=== PATIENT | female | born 1995 | race Caucasian/White ===

== ENCOUNTER 2021-09-17 09:56 | Outpatient (REF) | payer MEDICAID, SELFPAY ==
--- NOTE | ~2021-09-17 | XR_ITS ---
EXAMINATION: XR FINGER, RIGHT CLINICAL INFORMATION: Pain in right finger 2nd metacarpal. COMPARISON: None TECHNIQUE: 3 views of the right 2nd finger. FINDINGS: The bones and soft tissues are normal. No fracture. Alignment is anatomic. Joint spaces are maintained. XR/XR finger RT min 2V IMPRESSION: Unremarkable right 2nd finger radiographs.
== END 2021-09-17 09:57 | disposition home or self-care (01) ==
LOC: HO.XRAY 09:56
PROVIDERS: PCP Family Medicine; Visit Provider Family Medicine
DX: M79.644 Pain in right finger(s) (principal)
CPT/HCPCS: 73140

== ENCOUNTER → 2021-10-01 12:37 | Outpatient (BNVA) | payer MEDICAID, SELFPAY | PROVIDERS: PCP Family Medicine; Visit Provider Orthopaedic Surgery | DX: M67.441 Ganglion, right hand (principal) | CPT/HCPCS: 20612; 99202 ==

== ENCOUNTER 2022-01-11 13:28 | Outpatient (REF) | payer MEDICAID, SELFPAY ==
--- NOTE | ~2022-01-11 | US_ITS ---
EXAMINATION: US PELVIS CLINICAL INFORMATION: Dysmenorrhea COMPARISON: None TECHNIQUE: Transabdominal pelvic ultrasound. Patient declined transvaginal exam. FINDINGS: The uterus is anteverted and measures 6.2 x 2.8 x 3.9 cm in dimension. No focal uterine lesion. Endometrial thickness is normal measuring 0.6 cm. The ovaries are normal. The right ovary measures 3.1 x 1.8 x 3.3 cm. The left ovary measures 3.1 x 1.7 x 1.5 cm. There is no fluid in the pelvis. US/US pelvic complete IMPRESSION: Normal pelvic ultrasound.
== END 2022-01-11 13:29 | disposition home or self-care (01) ==
LOC: HO.US 13:28
PROVIDERS: Visit Provider Family Medicine
DX: N93.9 Abnormal uterine and vaginal bleeding, unspecified (principal); N94.6 Dysmenorrhea, unspecified
CPT/HCPCS: 76856

== ENCOUNTER 2022-01-18 12:31 | Outpatient (REF) | payer MEDICAID, SELFPAY ==
--- NOTE | 2022-01-18 | PFT_ITS ---
Forced vital capacity 113%, FEV1 104%, FEV1/FVC ratio 79, [id number] 86% and MVV 105%. Post bronchodilator therapy, there is no significant change. Total lung capacity 99%. Residual volume is 70%. Diffusion capacity 126% CONCLUSION: Normal pulmonary function test, and there is no indication of any obstructive or restrictive pulmonary disorder. MD CLAUDE Coffman/JEWELL / [id number]
== END 2022-01-18 12:32 | disposition home or self-care (01) ==
LOC: HO.RESP 12:31
PROVIDERS: PCP Family Medicine; Visit Provider Family Medicine
DX: J45.20 Mild intermittent asthma, uncomplicated (principal); R06.02 Shortness of breath
CPT/HCPCS: 94060; 94727; 94729

== ENCOUNTER 2022-10-12 10:47 | Outpatient (AMB) | payer MEDICAID, SELFPAY ==
--- NOTE | 2022-10-12 10:53 | MHC.OFFVIS ---
Intake Vital Signs 10/12/22 10:57 Height 5 ft 6 in Weight 230 lb BMI 37.1 Intake Visit Reasons: O/V-Right hand ganglion cyst of finger Intake Note: Jewel 27 yr old right hand dominant female presents today for her s/p Right index finger volar retinacular cyst s/p aspiration on 10/01/21. Patient states cyst has grown back and would like to discuss surgery vs aspiration. States pain with applying pressure. Occasional numbness and tingling in her whole finger. 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 She says her cyst has returned and is painful when gripping objects or applying pressure. 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 Review of Systems Const All systems reviewed & are unremarkable except as noted in HPI and below Physical Exam Vital Signs: BMI result Body Mass Index 37.1 Const General: no acute distress and alert Orientation/consciousness: patient oriented x3 Neuro General: patient oriented x3 Extrem Other: Evaluation of Right Upper Extremity: The patient is alert, oriented, and in no acute distress Neuro: Median, Ulnar, Radial nerves motor and sensory intact and sensation is normal to the tips of all digits Vascular: Cap refill brisk ROM: She can make a fist and extend all her digits No locking or catching She has a small mass measuring ~2mm in diameter over the flexor tendon sheath at the right index finger palmar digital crease. It is tender to palpation. Psych Appearance: grossly normal Affect: normal affect Attitude: cooperative Office Procedures Fracture Care Details: No fracture, aspiration Fracture Billing Code: Fracture Billing Code Assessment & Plan Assessment & Plan (1) Retinacular ganglion, volar (VRG): Code(s): M67.40 - Ganglion, unspecified site Plan Assessment and plan: 1. Right index finger volar retinacular cyst, recurrence S/P aspiration Date of procedure: 10/01/21 Measuring ~2mm in diameter Over the flexor tendon sheath at the index finger vega digital crease I educated her about this condition I discussed operative and non-operative treatment options The patient would like to proceed with a repeat aspiration Aspiration #1: The risks and benefits of aspiration, including but not limited to risk of damage to blood vessels, nerves, tendons, infection, failure to improve symptoms, increased pain, and possible need for further aspirations or surgical intervention. After obtaining written consent, I sterilely prepped the area over the Right index finger. I then injected subcutaneously with a small amount 1% lidocaine. I then passed a 27 gauge needle into the ganglion and aspirated some clear viscous fluid consistent with a ganglion. Some remaining viscous fluid was then pushed out of the ganglion. Both the patient and I palpated the area and neither of us could feel the ganglion any longer.?The patient tolerated this well and with no complications. If there is a recurrence of this volar retinacular ganglion, the patient knows to contact us to discuss further treatment options. Scribed for Skyla Cardenas MD by Ramses Hutchison, medical technologist chemistry, on 10/12/22 at 11:15 AM, EST. Coding Level of Care Code Est Pt Level 3 (82941) Diagnoses Retinacular ganglion, volar (VRG) M67.40 CPT Codes Fracture Care - Fracture Billing Code: Fracture Billing Code ([id number])
[2022-10-12 10:57] VITALS: BMI 37.1
== END 2022-10-12 11:50 | disposition home or self-care (01) ==
PROVIDERS: PCP Family Medicine; Visit Provider Orthopaedic Surgery
DX: M67.441 Ganglion, right hand (principal)
CPT/HCPCS: 20612; 99213

== ENCOUNTER → 2022-10-12 10:47 | Outpatient (BNVA) | payer MEDICAID, SELFPAY | PROVIDERS: PCP Family Medicine; Visit Provider Orthopaedic Surgery | DX: M67.431 Ganglion, right wrist (principal) | CPT/HCPCS: 20612; 99212 ==

== ENCOUNTER 2022-11-21 09:12 | Outpatient (REF) | payer MEDICAID, SELFPAY ==
[2022-11-21 11:17] LABS: MANUAL DIFF FLAG NO
[2022-11-21 11:39] LABS: Basophils Percent Auto 0.6 % (0-2); Eosinophils Absolute Auto 0.1 X10*3/uL (0.0-0.4); Hematocrit 41.3 % (37.0-47.0); Hemoglobin 13.2 g/dl (12.0-16.0); Imm Gran Abs Auto 0.01 X10*3/uL (0.00-0.03); Imm Gran Pct Auto 0.2 % (0.0-0.4); Lymphocytes Absolute Auto 1.2 X10*3/uL (1.2-4.9); Lymphocytes Percent Auto 24.3 % (20-40); Mean Corpuscular Hemoglobin 27.3 pg (27.0-33.0); Mean Corpuscular Volume 85.5 fL (80.0-98.0); Mean Platelet Volume 9.1 fL (9.4-12.3); Monocytes Absolute Auto 0.5 X10*3/uL (0.1-1.2); Monocytes Percent Auto 9.1 % (2-11); Neutrophils Absolute Auto 3.2 x10*3/uL (2.0-8.3); Neutrophils Percent Auto 64.8 % (45-73); Platelet Count 371 X10*3/uL (160-400); Red Blood Count 4.83 X10*6/uL (4.20-5.50); Red Cell Distribution Width 12.4 % (11.0-16.0); White Blood Count 4.9 X10*3/uL (4.8-10.8)
[2022-11-21 12:10] LABS: Cholesterol 160 mg/dL (<200); HDL Cholesterol 42 mg/dL (>40); LDL Cholesterol Calculated 101 mg/dL (<100); Triglycerides 89 mg/dL (<150)
[2022-11-21 12:13] LABS: Estimated Average Glucose 103 mg/dL; Hemoglobin A1c % 5.2 % (<6.0)
[2022-11-21 12:25] LABS: Alanine Aminotransferase 10 U/L (0-31); Albumin Level 3.9 g/dL (3.5-5.0); Alkaline Phosphatase 74 U/L (39-117); Anion Gap 12 (12-20); Aspartate Amino Transferase 16 U/L (5-31); Bilirubin Total 0.6 mg/dL (0.0-1.0); Blood Urea Nitrogen 9 mg/dL (9-16); Calcium 9.1 mg/dL (8.4-10.2); Carbon Dioxide 24 mmol/L (22-29); Chloride 107 mmol/L (96-108); Estimated Glomerular Filt Rate > 60; Glucose Random 99 mg/dL (60-115); Sodium 139 mmol/L (135-145); Total Protein 7.3 g/dL (6.5-8.0)
[2022-11-21 13:00] LABS: Reflex LDLD? No
[2022-11-22 04:14] LABS: Syphilis Screen Nonreactive (Nonreactive)
[2022-11-22 04:32] LABS: ~HepC Num1 0.22 S/CO (0.00-0.79); ~Hepatitis C Antibody Nonreactive (Nonreactive)
[2022-11-22 04:52] LABS: HBS Num1 3.02 mIU/mL (0-7.99); HBc Num1 0.08 S/CO (0.00-0.79); HIV AB/AG Nonreactive (Nonreactive); HIV Num 1 0.05 S/CO (0.00-0.99); Hepatitis B Core Antibody Nonreactive (Nonreactive); Hepatitis B Surface Antigen Negative (Negative); ~Hepatitis B Surface Antibody NONREACTIVE (Nonreactive)
== END 2022-11-21 09:13 | disposition home or self-care (01) ==
LOC: HO.HHCL 09:12
PROVIDERS: Visit Provider Family Medicine
DX: Z00.00 Encounter for general adult medical examination without abnormal findings (principal); Z11.4 Encounter for screening for human immunodeficiency virus [HIV]
CPT/HCPCS: 36415; 80053; 80061; 83036; 84443; 85025; 86704; 86706; 86780; 86803; 87340; 87389

== ENCOUNTER 2024-03-18 12:20 | Outpatient (REF) | payer MEDICAID, SELFPAY ==
[2024-03-18 14:21] LABS: Estimated Average Glucose 108 mg/dL; Hemoglobin A1C 119.8484 umol/L; Hemoglobin A1c % 5.4 % (<6.0); Total Hemoglobin (HGBA1C) 3363.6173 umol/L
[2024-03-18 14:33] LABS: Alanine Aminotransferase 13 U/L (0-31); Alkaline Phosphatase 84 U/L (39-117); Anion Gap 11 (12-20); Aspartate Amino Transferase 19 U/L (5-31); Bilirubin Total 0.5 mg/dL (0.0-1.0); Blood Urea Nitrogen 8 mg/dL (9-16); Calcium 8.9 mg/dL (8.4-10.2); Carbon Dioxide 28 mmol/L (22-29); Chloride 107 mmol/L (96-108); Cholesterol 173 mg/dL (<200); Estimated Glomerular Filt Rate > 60; Glucose Random 100 mg/dL (60-115); HDL Cholesterol 47 mg/dL (>40); LDL Cholesterol Calculated 108 mg/dL (<100); Sodium 142 mmol/L (135-145); Total Protein 7.6 g/dL (6.5-8.0); Triglycerides 90 mg/dL (<150)
[2024-03-18 14:49] LABS: TSH reflex Free T4 0.97 uIU/mL (0.32-4.0)
[2024-03-18 21:51] LABS: Reflex LDLD? No
[2024-03-21 14:31] LABS: Hepatitis A Antibody IgG REACTIVE (Nonreactive); ~Hepatitis A Antibody IgG 9.75 S/CO (0.00-0.99)
[2024-03-21 14:45] LABS: HBS Num1 4.01 mIU/mL (0-7.99); HBsAGNum1 0.35 S/CO (0.00-0.99); HIV AB/AG Nonreactive (Nonreactive); HIV Num 1 0.06 S/CO (0.00-0.99); Hepatitis B Core Antibody Nonreactive (Nonreactive); Hepatitis B Surface Antigen Negative (Negative); ~HepC Num1 0.25 S/CO (0.00-0.79); ~Hepatitis B Surface Antibody NONREACTIVE (Nonreactive); ~Hepatitis C Antibody Nonreactive (Nonreactive)
[2024-03-21 14:49] LABS: Syphilis Screen Nonreactive (Nonreactive)
== END 2024-03-18 12:21 | disposition home or self-care (01) ==
LOC: HO.HHCL 12:20
PROVIDERS: Visit Provider Family Medicine
DX: E66.01 Morbid (severe) obesity due to excess calories (principal); Z68.41 Body mass index [BMI] 40.0-44.9, adult; Z11.3 Encounter for screening for infections with a predominantly sexual mode of transmission
CPT/HCPCS: 36415; 80053; 80061; 83036; 84443; 86704; 86706; 86708; 86780; 86803; 87340; 87389

== ENCOUNTER 2024-06-11 13:34 | Outpatient (REF) | payer MEDICAID, SELFPAY ==
--- NOTE | ~2024-06-11 | XR_ITS ---
EXAMINATION: XR FOOT 3 OR MORE VIEWS RIGHT, XR ANKLE 3 OR MORE VIEWS RIGHT HISTORY: right foot injury last Monday. Difficulty bearing weight. COMPARISON: There are no prior studies available for comparison. FINDINGS: Six views of the right foot and ankle are submitted. Osseous mineralization is normal. There is a linear lucency through the base of the 5th metatarsal which is suspicious for nondisplaced fracture. This is seen only one view. The bones are otherwise intact. The joint spaces are preserved. The soft tissues are unremarkable. XR/XR ankle RT min 3V IMPRESSION: Possible nondisplaced fracture of the base of the 5th metatarsal. Clinical correlation is recommended. Electronically signed by: Ramiro Kelsey MD 06/11/2024 02:49 PM EDT
--- NOTE | ~2024-06-11 | XR_ITS ---
EXAMINATION: XR FOOT 3 OR MORE VIEWS RIGHT, XR ANKLE 3 OR MORE VIEWS RIGHT HISTORY: right foot injury last Monday. Difficulty bearing weight. COMPARISON: There are no prior studies available for comparison. FINDINGS: Six views of the right foot and ankle are submitted. Osseous mineralization is normal. There is a linear lucency through the base of the 5th metatarsal which is suspicious for nondisplaced fracture. This is seen only one view. The bones are otherwise intact. The joint spaces are preserved. The soft tissues are unremarkable. XR/XR foot RT min 3V IMPRESSION: Possible nondisplaced fracture of the base of the 5th metatarsal. Clinical correlation is recommended. Electronically signed by: Ramiro Kelsey MD 06/11/2024 02:49 PM EDT
== END 2024-06-11 13:35 | disposition home or self-care (01) ==
LOC: HO.HHCL 13:34
PROVIDERS: Visit Provider Family Medicine
DX: M79.671 Pain in right foot (principal); M25.571 Pain in right ankle and joints of right foot
CPT/HCPCS: 73610; 73630

== ENCOUNTER → 2024-06-11 13:42 | Outpatient (BNV) | payer MEDICAID, SELFPAY | PROVIDERS: Visit Provider Radiology Diagnostic Radiology | DX: S99.929A Unspecified injury of unspecified foot, initial encounter (principal) | CPT/HCPCS: 73610; 73630 ==

== ENCOUNTER 2024-12-24 14:03 | Outpatient (REF) | payer OTHER, SELFPAY ==
--- OUTSIDE RECORDS SUMMARY | 2024-12-24 13:15 | XMS_ITS | Encounter Summary ---
Author Organization [employer] Address [address] [place] [address] Care Team Providers Care Law Office Receptionist Name Role Phone Lala Rome MD Primary Care Provider [phone] Encounter Details Date Type Department Care Team (Late st Contact Info) Description 12/24/2024 1:15 PM EDT Office Visit [facility] [address], [place] [phone] Lala Rome MD [address], [place] [phone] Elevated BP without diagnosis of hypertension (Primary Dx); Moderate episode of recurrent major depressive disorder (CMS/HCC); Mild intermittent asthma without complication; Nonintractable headache, unspecified chronicity pattern, unspecified headache type; Ganglion cyst of finger of right hand; Abnormal uterine bleeding (AUB); Family history of diabetes mellitus; Vitamin D deficiency; Chronic midline low back pain without sciatica; Encounter for immunization Social History Tobacco Use Types Packs/Day Years Used Date Smoking Tobacco: Never Passive Smoke Exposure: Never Smokeless Tobacco: Never Tobacco Cessation:Counseling Given: Not Answered Depression Answer Date Recorded Patient Health Questionnaire-9 Score 9 12/24/2024 Patient Health Questionnaire-9 Score 9 12/24/2024 Last PHQ-9: Questionnaire Data Not on file 0 12/24/2024 Housing Stability Answer Date Recorded What is your housing situation today? I have rosaura doshi 03/18/[address] you li ve. Do you have problems with any of the following? None of the above 03/18/2024 Food Insecurity Answer Date Recorded Within the past 12 months, y ou worried that your food would run out before you got money to buy more: Never True 03/18/2024 Within the past 12 months,th e food you bought just didn't last and you didn't have enough money to get more: Never True Transportation Answer Date Recorded In the past 12 months, has l ack of transportation kept you from medical appts, meetings, work or from getting things needed for daily living? No 03/18/2024 Utilities Answer Date Recorded In the past 12 months, has t he electric, gas, oil or water company threatened to shut off services in your home? 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 on file Not on file Not on file documented as of this encounter Last Filed Vital Signs Vital Sign Reading Time Taken Comments Blood Pressure 128/82 12/24/2024 1:22 PM EDT Pulse 97 12/24/2024 1:22 PM EDT Temperature 37.1 C (98.7 F) 12/24/2024 1:22 PM EDT Respiratory Rate 20 12/24/2024 1:22 PM EDT Oxygen Saturation 98% 12/24/2024 1:22 PM EDT Inhaled Oxygen Concentration - - Weight 119 kg (261 lb 12.8 oz) 12/24/2024 1:22 P M EDT Height 167.6 cm (5' 6 ) 12/24/2024 1:22 PM EDT Body Mass Index 42.26 12/24/2024 1:22 PM EDT documented in this encounter Functional Status * Over the past 2 weeks, how often have you been bothered by any of the following problems? Question Answer Date of Assessment Author Patient Health Questionnaire -2 Score 2 12/24/2024 1:23 PM EDT Radha Kerr MA * Little interest or pleasure in doing things Answer Date of Assessment Author Several days 12/24/2024 1:23 PM Herber Mancini MA * Feeling down, depressed, or hopeless Answer Date of Assessment Author Several days 12/24/2024 1:23 PM Herber Mancini MA * Trouble falling or staying asleep, or sleeping too much Answer Date of Assessment Author Several days 12/24/2024 1:23 PM Herber Mancini MA * Feeling tired or having little energy Answer Date of Assessment Author Several days 12/24/2024 1:23 PM Herber Mancini MA * Poor appetite or overeating Answer Date of Assessment Author Several days 12/24/2024 1:23 PM Herber Mancini MA * Feeling bad about yourself - or that you are a failure or have let yourself or your family down Answer Date of Assessment Author Several days 12/24/2024 1:23 PM Herber Mancini MA * Trouble concentrating on things, such as reading the newspaper or watching television Answer Date of Assessment Author Several days 12/24/2024 1:23 PM Herber Mancini MA * Moving or speaking so slowly that other people could have noticed? Or the opposite - being so fidgety or restless that you have been moving around a lot more than usual. Answer Date of Assessment Author Several days 12/24/2024 1:23 PM Herber Mancini MA * Thoughts that you would be better off or hurting yourself in some way Answer Date of Assessment Author Several days 12/24/2024 1:23 PM Herber Mancini MA * Patient Health Questionnaire-9 Score Answer Date of Assessment Author 9 12/24/2024 1:23 PM Herber Mancini MA * How difficult have these problems made it for you to do your work, take care of things at home, or get along with other people? Answer Date of Assessment Author Somewhat difficult 12/24/2024 1:23 PM Radha Mancini MA documented as of this encounter Plan of Treatment Scheduled Orders Name Type Priority Associated Diagnoses Orde r Schedule CBC auto differential Lab Routine Abnormal uterine bleeding (AUB) Expected: 12/24/2024 (Approximate), Expires: 12/24/2025 Comprehensive Metabolic Panel Lab Routine Elevated BP without diagnosis of hypertension Expected: 12/24/2024 (Approximate), Expires: 12/24/2025 TSH with Reflex to Free T4 Lab Routine Abnormal uterine bleeding (AUB) Expected: 12/24/2024 (Approximate), Expires: 12/24/2025 Vitamin D, 25-Hydroxy, Total, Immunoassay Lab Routine Vitamin D deficiency Expected: 12/24/2024 (Approximate), Expires: 12/24/2025 Hemoglobin A1c Lab Routine Abnormal uterine bleeding (AUB) Family history of diabetes mellitus Expected: 12/24/2024 (Approximate), Expires: 12/24/2025 XR Lumbar Spine 2-3 Views Imaging Routine Chronic midline low back pain without sciatica Expected: 12/24/2024, Expires: 12/24/2025 documented as of this encounter Visit Diagnoses Diagnosis Elevated BP without diagnosis of hypertension- Primary Moderate episode of recurrent major depressive disorder (CMS/HCC) (HCC) Mild intermittent asthma without complication Nonintractable headache, unspecified chronicity pattern, unspecified headache type Ganglion cyst of finger of right hand Abnormal uterine bleeding (AUB) Family history of diabetes mellitus Vitamin D deficiency Chronic midline low back pain without sciatica Encounter for immunization documented in this encounter Additional Health Concerns Assessment Noted Time PHQ-9 Depression Total Score: 9 12/25/19 25 1:23 PM EDT documented as of this encounter Care Teams Law Office Receptionist Relationship Specialty Start Date End Date Lala Rome MD [address] [place] [address] PCP - General Family Medicine 03/27/18 documented as of this encounter
--- OUTSIDE RECORDS SUMMARY | 2024-12-24 15:25 | XMS_ITS | Encounter Summary ---
Author Organization [employer] Address [address] [place] [address] Care Team Providers Care Parking Enforcement Technician Name Role Phone Lala Rome MD Primary Care Provider [phone] Encounter Details Date Type Department Care Team (Late st Contact Info) Description 09/06/2022 Orders Only [facility] [address], [place] [phone] Lala Rome MD [address] [place], [place] [phone] Ganglion cyst of finger of right hand (Primary Dx) Social History Tobacco Use Types Packs/Day Years Used Date Smoking Tobacco: Never Assessed Comments Unknown Sex and Gender Information Value [...] on file documented as of this encounter Plan of Treatment Not on file documented as of this encounter Procedures Procedure Name Priority Date/Time Associated Diagnosis Comments HEPATITIS C ANTIBODY REFLEX Routine 11/21/2022 9:16 AM EDT Ganglion cyst of finger of right hand HIV ANTIBODY/ANTIGEN (NE DPH) Routine 11/21/2022 9:16 AM EDT Ganglion cyst of finger of right hand HEPATITIS B SURFACE ANTIGEN, EIA Routine 11/21/2022 9:16 AM EDT Ganglion cyst of finger of right hand HEPATITIS B SURFACE ANTIBODY, QUALITATIVE Routine 11/21/2022 9:16 AM EDT Ganglion cyst of finger of right hand documented in this encounter Results * Hepatitis B surface antigen, EIA (11/21/2022 9:16 AM EDT) Hepatitis B Surface Ag Negative Negative [facility] 11/21/2022 9:16 AM EDT 11/21/2022 11:09 AM EDT Lala Rome MD LAB BLOOD ORDERABLES Final Resul t Performing Organization Address [facility] Co de Phone Number [facility] [address] [place] [phone] * HIV Ab/Ag ([facility]) (11/21/2022 9:16 AM EDT) HIV AB/AG Nonreactive Nonreactive [facility] Comment:HIV-1 p24 Ag and/or HIV-1/HIV-2 Ab not detected.A test result that is nonreactive does not exclude thepossibility of exposure to or infection with HIV-1 and/orHIV-2. Nonreactive results in this assay for individualswith prior exposure to HIV-1 and/or HIV-2 may be due toantigen and antibody levels that are below the limit ofdetection of this assay.The [employer] HIV Ag/Ab Combo assay result andsupplemental assay results should be interpreted inconjunction with the patient's clinical presentation,history and other laboratory results. If the results areinconsistent with clinical evidence, additional testing issuggested to confirm the result. 11/21/2022 9:16 AM EDT 11/21/2022 11:09 AM EDT us Lala Rome MD LAB BLOOD ORDERABLES Final Resul t Performing Organization Address [facility]/ZIP Co de Phone Number [facility] [address] [place] [phone] * Hepatitis B Surface Antibody, Qualitative (11/21/2022 9:16 AM EDT) ~Hepatitis B Surface Antibody NONREACTIVE Nonreactive [facility] Comment:Nonreactive: < 8.00 mIU/mL 11/21/2022 9:16 AM EDT 11/21/2022 11:09 AM EDT us Lala Rome MD LAB BLOOD ORDERABLES Final Resul t Performing Organization Address [facility] de Phone Number [facility] [address] [place] [phone] * Hepatitis C Antibody Reflex (11/21/2022 9:16 AM EDT) Hepatitis C Antibody Nonreactive Nonreactive [facility] Comment:Antibodies to HCV no t detected; does not exclude early acuteHCV infection. 11/21/2022 9:16 AM EDT 11/21/2022 11:09 AM EDT us Lala Rome MD LAB BLOOD ORDERABLES Final Resul t Performing Organization Address [facility] de Phone Number [facility] [address] [place] [phone] documented in this encounter Visit Diagnoses Diagnosis Ganglion cyst of finger of right hand- Primary documented in this encounter Additional Health Concerns Assessment Noted Time PHQ-9 Depression Total Score: 14 023 7:23 AM EST documented as of this encounter Care Teams Parking Enforcement Technician Relationship Specialty Start Date End Date Lala Rome MD [address] [place] [address] PCP - General Family Medicine 03/27/18 documented as of this encounter
--- OUTSIDE RECORDS SUMMARY | 2024-12-24 15:25 | XMS_ITS | Clinical Summary ---
Author Organization [employer] Address [address] [facility] [address] [place] [address] Care Team Providers Care Concrete Carpenter Name Role Phone Lala Rome MD Primary Care Provider [phone] Allergies Active Allergy Reactions Criticality Noted Date Comments Marshall 06/18/2021 Medications * This document contains information received from the source organization and may not represent a complete record from that organization. naproxen (Naprosyn) 500 MG tablet TAKE 1 TABLET BY MOUTH TWICE A DAY WITH FOOD 2 Active fluticasone (Flonase) 50 MCG/ACT nasal spray SPRAY 1 SPRAY INTO EACH NOSTRIL EVERY DAY 16 g 3 3 Active cetirizine (ZyrTEC) 10 MG tablet Take 1 tablet (10 mg) by mouth Once per day. 90 tablet 3 4 Active albuterol 108 (90 Base) MCG/ACT inhaler INHALE 2 PUFFS BY MOUTH EVERY 4 HOURS NEEDED FOR SHORTNESS OF BREATH OR WHEEZING. MAXIMUM 8 PUFFS PER DAY. 18 g 3 5 Active Active Problems Problem Noted Date Diagnosed Date Headache 08/20/2024 Right foot pain 06/14/2024 Overview (06/14/2024): - Ordered Labs 06/11/24 Assessment & Plan (06/14/2024 4:49 PM EDT): - Date of injury 06/05/24, high-impact / twisting / inverting injury - Evaluate with X-ray - Reviewed precautionary measure - Judicious use of NSAIDs or APAP - comfortable shoes Acute right ankle pain 06/14/2024 Overview (06/14/2024): - Ordered labs 06/11/24 Menorrhagia with regular cycle 06/14/2024 Assessment & Plan (06/14/2024 4:46 PM EDT): -normal pelvic US -patient has not been sexually active and declines cervical cancer screening (waiting for HPV swab in near future) - significant ecchymosis of right foot, after trauma - will evaluate for coagulopathy Ecchymosis 06/14/2024 Elevated BP without diagnosis of hypertension Assessment & Plan (08/25/2024 12:46 PM EDT): -Goal BP < 130/80 per ACC/AHA guideline (Treatment threshold >=140/90) -BP at goal today -Family history of hypertension and ESRD on HD -Continue working on lifestyle modifications -Recommended self-monitoring BP -Follow up in 3-6 mo, sooner if any problem arises Assessment & Plan (06/11/2024 8:53 AM EDT): -Goal BP < 140/90 per JNC-8 and < 130/80 per ACC/AHA guideline (Treatment threshold >=140/90) -BP suboptimal -Family history of hypertension and ESRD on HD -Continue working on lifestyle modifications -Recommended self-monitoring BP -Reminded about her lab -Follow up in 3-6 mo, sooner if any problem arises Assessment & Plan (03/25/2024 5:23 AM EST): -Goal BP < 140/90 per JNC-8 and < 130/80 per ACC/AHA guideline (Treatment threshold >=140/90) -BP suboptimal -Family history of hypertension and ESRD on HD -Continue working on lifestyle modifications -Recommended self-monitoring BP -Reminded about her lab -Follow up in 3-6 mo, sooner if any problem arises Moderate episode of recurren t major depressive disorder (CMS/HCC) 11/28/2023 Assessment & Plan (08/20/2024 1:53 PM EDT): - PHQ9 score 12 and GAD7 score 10 on 03/18/24 - PHQ9 score 10 and GAD7 score 8 on 06/11/24 - patient declines medication or behavioral health service - discussed about grief, self-care, and safety Assessment & Plan (06/14/2024 4:43 PM EDT): - PHQ9 score 12 and GAD7 score 10 on 03/18/24 - PHQ9 score 10 and GAD7 score 8 on 06/11/24 - patient declines medication or behavioral health service - discussed about grief, self-care, and safety Assessment & Plan (03/25/2024 5:28 AM EST): - PHQ9 score 12 and GAD7 score 10 on 03/18/24 - patient declines medication or behavioral health service - discussed about grief, self-care, and safety Breast fibroadenoma, 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/2022 Assessment & Plan (11/15/2022 6:06 PM EDT): - 01/25/13 US-guided core biopsy: Pathology report fibroadenoma Alcohol intake above recomme nded sensible limits without complication 11/15/2022 Assessment & Plan (08/20/2024 1:53 PM EDT): - discussed about reducing alcohol consumption - discussed about safety issue while she is under the influence Assessment & Plan (12/10/2022 5:22 PM EDT): - discussed about reducing alcohol consumption - discussed about safety issue while she is under the influence Abnormal uterine bleeding 04/04/2022 Assessment & Plan (06/14/2024 4:45 PM EDT): -01/11/22 Pelvic (not transvaginal) US showed no abnormality - continue discussing about cervical cancer screening - pt is not interested in contraception at this time Assessment & Plan (03/17/2024 9:08 PM EST): -01/11/22 Pelvic (not transvaginal) US showed no abnormality - continue discussing about cervical cancer screening - pt is not interested in contraception at this time Assessment & Plan (12/10/2022 5:19 PM EDT): -01/11/22 Pelvic (not transvaginal) US showed no abnormality - continue discussing about cervical cancer screening - pt is not interested in contraception at this time Assessment & Plan (04/04/2022 4:52 AM EST): -01/11/22 Pelvic (not transvaginal) US showed no abnormality Dysthymia 04/04/2022 Assessment & Plan (03/25/2024 5:26 AM EST): -DDx: MDD or adjustment disorder -Seen by integrated behavioral health service clinician. -Tried counseling, but patient has not made a follow up appointment. Not interested at this time. 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 -index finger -aspirated on 10/21/21 and 10/12/[address] Cardenas Assessment & Plan (04/04/2022 5:05 AM EST): -index finger -aspirated on 10/21/[address] Cardenas Asthma 03/29/2022 Assessment & Plan (08/20/2024 1:54 PM EDT): -last exacerbation requiring steroid > 3 years ago -s/p COVID in Dec 2023 -PFT ordered, but not completed yet -Previously Rx montelukast for both allergy and asthma, but patient is not taking -Continue albuterol HFA prn -Consider ICS/LABA prn Assessment & Plan (06/11/2024 8:53 AM EDT): -last exacerbation requiring steroid > 3 years ago -s/p COVID in Dec 2023 -PFT ordered, but not completed yet -Previously Rx montelukast for both allergy and asthma, but patient is not taking -Continue albuterol HFA prn -Consider ICS/LABA prn Assessment & Plan (03/25/2024 5:21 AM EST): -last exacerbation requiring steroid > 3 years ago -s/p COVID in Dec 2023 -PFT ordered, but not completed yet -Previously Rx montelukast for both allergy and asthma, but patient is not taking -Continue albuterol HFA prn -Consider ICS/LABA prn Assessment & Plan (11/23/2023 1:13 PM EDT): -last exacerbation -PFT ordered, but not completed yet -Continue montelukast for both allergy and asthma -Continue albuterol HFA prn -Consider ICS/LABA prn Assessment & Plan (04/08/2022 7:21 AM EST): -last exacerbation -PFT ordered, but not completed yet -Continue montelukast for both allergy and asthma -Continue albuterol HFA prn -Consider ICS/LABA prn Dysmenorrhea 05/26/2016 Assessment & Plan (03/17/2024 9:08 PM EST): - continue naproxen prn Assessment & Plan (11/23/2023 1:13 PM EDT): - continue naproxen prn Hypertrophy of tonsils 05/26/2015 Allergic rhinitis 04/17/2013 Assessment & Plan (08/25/2024 12:46 PM EDT): -Continue montelukast, cetirizine, and fluticasone nasal prn -Patient had allergy test in 2020 which showed reaction to many trees and grasses. Patient declines medication at this time Assessment & Plan (06/11/2024 8:53 AM EDT): -Continue montelukast, cetirizine, and fluticasone nasal prn -Patient had allergy test in 2020 which showed reaction to many trees and grasses. Patient declines medication at this time Assessment & Plan (11/23/2023 1:15 PM EDT): -Continue montelukast, cetirizine, and fluticasone nasal prn -Patient had allergy test in 2020 which showed reaction to many trees and grasses. Patient declines medication at this time Assessment & Plan (12/10/2022 5:22 PM EDT): -Continue montelukast, cetirizine, and fluticasone nasal prn -Consider further evaluation by specialist Assessment & Plan (04/04/2022 4:54 AM EST): -Continue montelukast, cetirizine, and fluticasone nasal prn -Consider further evaluation by specialist Obesity 04/17/2013 Assessment & Plan (06/14/2024 4:52 PM EDT): -TSH, diabetes mellitus, lipid, and MASLD screening lab on 03/18/24, normal -Continue working on lifestyle modifications. Generic advice as below. Modify for individualized plan that makes most sense for you. Dietary Recommendations: Fruits, vegetables, whole grains, protein foods, and fat-free or low-fat dairy products are healthy choices. Eat different types of protein foods in your diet. This can include seafood, lean meats, poultry, beans, peas, lentils, nuts, seeds, soy products, and eggs. Limit foods and beverages higher in added sugars, saturated fat, and sodium. Exercise Recommendations: At least 150 minutes of moderate-intensity physical activity per week, or an equivalent combination of moderate- and vigorous-intensity activity Assessment & Plan (03/25/2024 5:25 AM EST): -TSH, diabetes mellitus, lipid, and MASLD screening lab on 03/18/24, normal -Continue working on lifestyle modfications Assessment & Plan (11/23/2023 11:20 AM EDT): -09/17/21 A1C 5.1% TC 167; TG 74;HDL 50; LDL 101; TSH 0.93. -Continue working on lifestyle modfications Assessment & Plan (12/10/2022 5:20 PM EDT): -09/17/21 A1C 5.1% TC 167; TG 74;HDL 50; LDL 101; TSH 0.93. -Continue working on lifestyle modfications Assessment & Plan (04/04/2022 5:04 AM EST): -09/17/21 A1C 5.1% TC 167; TG 74;HDL 50; LDL 101; TSH 0.93. -Continue working on lifestyle modfications Resolved Problems Problem Noted Date Diagnosed Date Resolved Date Adjustment disorder with mix ed anxiety and depressed mood 04/08/2022 11/28/2023 Assessment & Plan (04/08/2022 7:18 AM EST): - referred to S, but pt has not had a follow-up - will check its status - pt does not want to take any medication yet Encounters Date Type Department Care Team Description 12/24/2024 1:15 PM EDT Office Visit [facility] [address] [place] [phone] Lala Rome MD Elevated BP without diagnosis of hypertension (Primary Dx); Moderate episode of recurrent major depressive disorder (CMS/HCC); Mild intermittent asthma without complication; Nonintractable headache, unspecified chronicity pattern, unspecified headache type; Ganglion cyst of finger of right hand; Abnormal uterine bleeding (AUB); Family history of diabetes mellitus; Vitamin D deficiency; Chronic midline low back pain without sciatica; Encounter for immunization 12/24/2024 Travel 12/23/[address] [phone] Lala Rome MD chart prep 12/23/2024 Travel 12/16/2024 Patient Outreach [address] [phone] Lala Rome MD Pre-visit Planning (Pre-visit planning - LVM ) 11/18/2024 Orders Only [address] [address] Lala Rome MD 11/15/[address] [address] Lala Rome MD 11/15/[address] [address] Lala Rome MD Appointment Request from Last 3 Months Immunizations Immunization Administration Dates Next Due DTaP 08/29/2008, 2,09/14/1998,03/24,01/20/1997,1996 HPV, Quadrivalent 05/09/2011,03/06/2010,08/30/19 09 Hep A, ped/adol, 2 dose 05/09/2011,03/12/2010 Hep B, Adolescent or Pediatric 01/20/1997,1996 Hep B, adult 06/11/2024 Hib (HbOC) 03/24/1997,01/20/1997,1996 IPV 10/30/2001,1996,1996 Influenza injectable quadriv alent IIV4 with preservative 04/04/2022,05/26/2015 Influenza injectable quadriv alent preservative free 05/26/2016 Influenza, IIV3, injectable 03/12/2010 Influenza, Split (incl. aquiles fied surface antigen) 01/11/2013 Influenza, injectable, quadr ivalent, preservative free, pediatric 03/31/2014 Influenza, seasonal, injecta ble, preservative free 12/24/2024,03/18/2024 MMR 11/09/2001,09/08/1997 Meningococcal MCV4P ACYW-135 01/11/2013,08/30/19 09 OPV, Trivalent 09/14/1998 Pfizer Covid-19 Vaccine 12+ trudi-sucrose (Graham Cap) 07/09/2021,06/18/2021 Pneumococcal Conjugate PCV 20 03/18/2024 Tdap 03/18/2024,01/11/2013 Varicella 08/29/2008,09/08/1997 Family History Medical History Relation Name Comments Anxiety disorder Brother Addiction problem Father Diabetes Father end stage renal disease Father Allergic rhinitis Mother Anxiety disorder Mother Asthma Mother Anxiety disorder Sister Relation Name Status Comments Brother Father Mother Sister Social History Tobacco Use Types Packs/Day Years [...] file Not on file Not on file Last Filed Vital Signs Vital Sign Reading [...] Mass Index 42.26 12/24/2024 1:22 PM EDT Plan of Treatment Health Maintenance Due Date Last Done Comments Family Planning (PISQ) 07/24/2011 Pap Smear 2017 COVID-19 Vaccine ( season) 2024 07/09/2021, 06/18/2021 Alcohol/Substance Use Screening 03/18/2025 03/18/2024 SDOH Screening 03/18/2025 03/18/2024 Depression Monitoring 06/23/2025 12/24/2024, 025 Disability Screening 12/23/2025 12/23/2024 Tobacco Screening 12/24/2025 12/24/2024 Lipid Panel 03/18/2029 03/18/2024, 10/26, 09/17/2021 DTaP/Tdap/Td Vaccines (9 - Td or Tdap) 03/18/2034 03/18/2024, 01/11/2013, 08/29/2008, Additional history exists Zoster Vaccines (1 of 2) 2046 RSV Patients and Patients Aged 60 years or older (1 - 1-dose 75+ series) 07/24/2071 HIB Vaccines Aged Out 03/24/1997, 12/26, 1996 No longer eligible based on patient's age to complete this topic IPV Vaccines Completed 10/30/2001, 08/26, 1996, Additional history exists HPV Vaccines Completed 05/09/2011, 02/24, 08/29/2008 Hepatitis A Vaccines Completed 05/09/2011, 03/12/20 10 Meningococcal Vaccine Completed 01/11/2013, 009 HIV Screening Completed 03/18/2024, 10/26, 09/17/2021 Hepatitis C Screening Completed 03/18/2024 , 11/21/2022, 09/17/2021 Pneumococcal Vaccine: Pediatrics (0 to 5 Years) and At-Risk Patients (6 to 49) Years Completed 03/18/2024 Hepatitis B Vaccines Completed 06/11/2024, 01/20/1997, 1996 Influenza Vaccine Completed 12/24/2024, , 04/04/2022, Additional history exists Meningococcal B Vaccine Aged Out No l onger eligible based on patient's age to complete this topic RSV under 20 months Aged Out No longe r eligible based on patient's age to complete this topic Rotavirus Vaccines Aged Out No longer eligible based on patient's age to complete this topic Procedures Procedure Name Priority Date/Time Associated Diagnosis Comments HEPATITIS C AB W/REFL TO HCV RNA, QN, PCR Routine 03/18/2024 12:22 PM EST Routine screening for STI (sexually transmitted infection) HIV 1/2 ANTIGEN/ANTIBODY, FOURTH GENERATION W/RFL Routine 03/18/2024 12:22 PM EST Routine screening for STI (sexually transmitted infection) LIPID PANEL WITH REFLEX TO DIRECT LDL Routine 03/18/2024 12:22 PM EST Class 3 severe obesity due to excess calories without serious comorbidity with body mass index (BMI) of 40.0 to 44.9 in adult (CMS/HCC) from Last 3 Months or Most Recently Relevant to Health Maintenance Results * (ABNORMAL) Lipid Panel with Reflex to Direct LDL (03/18/2024 12:22 PM EST) Triglycerides 90 <150 mg/dL [facility] Comment:Desirable Triglyceri de: less than 150 mg/dLBorderline High Triglyceride 150-199 mg/dLHigh Triglyceride: 200-499 mg/dLVery High Triglyceride: greater than or equal to 5OO mg/dL Cholesterol 173 <200 mg/dL [facility] Comment:Desirable Cholestero l: less than 200 mg/dLBorderline High Cholesterol: 200-239 mg/dLHigh Cholesterol: greater than 239 mg/dL LDL Cholesterol Calculated 108(H) <100 mg/dL [facility] Comment:Desirable LDL: less than 100 mg/dLNear Optimal/Above Optimal LDL: 110- 129 mg/dLBorderline High LDL: 130-159 mg/dLHigh LDL: 160-189 mg/dLVery High LDL: greater than or equal to 190 mg/dL HDL Cholesterol 47 >40 mg/dL [facility] Comment:Desirable HDL: great er than 40 mg/dL Note: This HDL assay may give artificially low results in patients with liver disease. Blood 03/18/2024 12:2 2 PM EST 03/18/2024 1:44 PM EST Lala Rome MD LAB BLOOD ORDERABLES Final Resul t Performing Organization Address City/[facility]/ZIP Co de Phone Number [facility] [address] [place] [phone] * Hepatitis C Antibody with Reflex to HCV, RNA, Quantitative, Real-Time PCR (03/18/2024 12:22 PM EST) Hepatitis C Antibody Nonreactive Nonreactive [facility] Comment:Antibodies to HCV no t detected; does not exclude early acuteHCV infection. Blood Venous blood specimen / Unknown 03/18/2024 12:22 PM EST 03/18/2024 1:46 PM EST Lala Rome MD LAB BLOOD ORDERABLES Final Resul t Performing Organization Address City/[facility]/ZIP Co de Phone Number [facility] [address] [place] [phone] * HIV-1/2 Antigen and Antibodies, Fourth Generation, with Reflexes (03/18/2024 12:22 PM EST) HIV AB/AG Nonreactive Nonreactive [facility] Comment:HIV-1 p24 Ag and/or HIV-1/HIV-2 Ab not detected.A test result that is nonreactive does not exclude thepossibility of exposure to or infection with HIV-1 and/orHIV-2. Nonreactive results in this assay for individualswith prior exposure to HIV-1 and/or HIV-2 may be due toantigen and antibody levels that are below the limit ofdetection of this assay.The [employer] HIV Ag/Ab Combo assay result andsupplemental assay results should be interpreted inconjunction with the patient's clinical presentation,history and other laboratory results. If the results areinconsistent with clinical evidence, additional testing issuggested to confirm the result. Blood Venous blood specimen / Unknown 03/18/2024 12:22 PM EST 03/18/2024 1:46 PM EST us Lala Rome MD LAB BLOOD ORDERABLES Final Resul t [facility] [address] [place] [address] [phone] from Last 3 Months or Most Recently Relevant to Health Maintenance Insurance [facility] Care Teams Concrete Carpenter Relationship Specialty Start Date End Date Lala Rome MD [address] [place] [phone] PCP - General Family Medicine 03/27/18
--- OUTSIDE RECORDS SUMMARY | 2024-12-24 15:25 | XMS_ITS | Encounter Summary ---
Author Organization [employer] Address [address] [address] [place] [address] Care Team Providers Care Men'S Designer Name Role Phone Lala Rome MD Primary Care Provider [phone] Encounter Details Date Type Department Care Team (Latest Contact Info) Description 12/23/2024 Travel Social History Tobacco Use Types Packs/Day Years Used Date Smoking Tobacco: Never Passive Smoke Exposure: Never Smokeless Tobacco: Never Depression Answer Date Recorded Patient Health Questionnaire-9 [...] on file documented as of this encounter Visit Diagnoses Not on filedocumented in this encounter Additional Health Concerns Assessment Noted Time PHQ-9 Depression Total Score: 9 06/18/19 25 8:37 AM EDT documented as of this encounter Care Teams Men'S Designer Relationship Specialty Start Date End Date Lala Rome MD [address] [place] [address] PCP - General Family Medicine 03/27/18 documented as of this encounter
--- OUTSIDE RECORDS SUMMARY | 2024-12-24 15:25 | XMS_ITS | Encounter Summary ---
Author Organization [employer] Address [address] [facility] [address] [place] [address] Care Team Providers Care Spanish Moss Picker Name Role Phone Lala Rome MD Primary Care Provider [phone] Encounter Details Date Type Department Care Team (Latest Contact Info) Description 12/24/2024 Travel Social History Tobacco Use Types Packs/Day [...] on file documented as of this encounter Functional Status * Over the past 2 weeks, how often have you been bothered by any of the following problems? Question Answer Date of Assessment Author Patient Health Questionnaire -2 Score 2 12/24/2024 1:23 PM EDT Radha Kerr MA * Little interest or pleasure in doing things Answer Date of Assessment Author Several days 12/24/2024 1:23 PM EDT Herber Kerr MA * Feeling down, depressed, or hopeless Answer Date of Assessment Author Several days 12/24/2024 1:23 PM EDT Herber Kerr MA * Trouble falling or staying asleep, or sleeping too much Answer Date of Assessment Author Several days 12/24/2024 1:23 PM EDT Herber Kerr MA * Feeling tired or having little energy Answer Date of Assessment Author Several days 12/24/2024 1:23 PM EDT Herber Kerr MA * Poor appetite or overeating Answer Date of Assessment Author Several days 12/24/2024 1:23 PM EDT Herber Kerr MA * Feeling bad about yourself - or that you are a failure or have let yourself or your family down Answer Date of Assessment Author Several days 12/24/2024 1:23 PM MAGGYT Herber Kerr MA * Trouble concentrating on things, such as reading the newspaper or watching television Answer Date of Assessment Author Several days 12/24/2024 1:23 PM EDT Herber Kerr MA * Moving or speaking so slowly that other people could have noticed? Or the opposite - being so fidgety or restless that you have been moving around a lot more than usual. Answer Date of Assessment Author Several days 12/24/2024 1:23 PM EDT Herber Kerr MA * Thoughts that you would be better off or hurting yourself in some way Answer Date of Assessment Author Several days 12/24/2024 1:23 PM EDT Herber Kerr MA * Patient Health Questionnaire-9 Score Answer Date of Assessment Author 9 12/24/2024 1:23 PM EDT Herber Kerr MA * How difficult have these problems made it for you to do your work, take care of things at home, or get along with other people? Answer Date of Assessment Author Somewhat difficult 12/24/2024 1:23 PM EDT Radha Kerr MA documented as of this encounter Plan of Treatment Not on file documented as of this encounter Visit Diagnoses Not on filedocumented in this encounter Additional Health Concerns Assessment Noted Time PHQ-9 Depression Total Score: 9 12/25/19 25 1:23 PM EDT documented as of this encounter Care Teams Spanish Moss Picker Relationship Specialty Start Date End Date Lala Rome MD [address] [place] [address] PCP - General Family Medicine 03/27/18 documented as of this encounter
--- OUTSIDE RECORDS SUMMARY | 2024-12-24 15:25 | XMS_ITS | Encounter Summary ---
Author Organization [employer] Address [address] [place] [address] Care Team Providers Care Collection Technician Name Role Phone Lala Rome MD Primary Care Provider [phone] Encounter Details Date Type Department Care Team (Late st Contact Info) Description 11/18/2024 Orders Only [facility] [address] [place], [place] [phone] Lala Rome MD [address] [place], [place] [phone] Social History Tobacco Use Types Packs/Day Years Used Date Smoking Tobacco: Never Passive Smoke Exposure: Never Smokeless Tobacco: Never Depression Answer Date Recorded Patient Health Questionnaire-9 Score 9 06/17/2024 Patient Health Questionnaire-9 Score 9 06/17/2024 Last PHQ-9: Questionnaire Data Not on file 0 06/17/2024 Housing Stability Answer Date Recorded What is [...] Date Recorded Patient Health Questionnaire-2 Score 2 06/17/2024 Internet Access Answer Date Recorded Internet Access [...] documented as of this encounter Care Teams Collection Technician Relationship Specialty Start Date End Date Lala Rome MD [address] [place] [phone] PCP - General Family Medicine 03/27/18 documented as of this encounter
--- OUTSIDE RECORDS SUMMARY | 2024-12-24 15:25 | XMS_ITS | Encounter Summary ---
Author Organization [employer] Address [address] [address] [place] [address] Care Team Providers Care Brine Process Operator Name Role Phone Lala Rome MD Primary Care Provider [phone] Reason for Visit * Reason Onset Date Comments chart prep 12/23/2024 Encounter Details Date Type Department Care Team ([facility] st Contact Info) Description 12/23/2024 Telephone [facility] [address] [place], [place] [phone] Lala Rome MD [address] [place], [place] [phone] chart prep Social History Tobacco Use Types Packs/Day Years [...] on file documented as of this encounter Miscellaneous Notes * Telephone Encounter - Radha Kerr MA - 12/23/2024 1:48 PM EDT Chart Prep Labs: not done Images: done Screenings: PAP Vaccines due: Covid Due and Flu Due Referrals: Completed Overdue care gaps: PHQ9 documented in this encounter Plan of Treatment Not on file documented as of this encounter Visit Diagnoses Not on filedocumented in this encounter Additional Health Concerns Assessment Noted Time PHQ-9 Depression Total Score: 9 06/18/19 25 8:37 AM EDT documented as of this encounter Care Teams Brine Process Operator Relationship Specialty Start Date End Date Lala Rome MD [address] [place] [phone] PCP - General Family Medicine 03/27/18 documented as of this encounter
[2024-12-24 16:26] LABS: MANUAL DIFF FLAG NO
[2024-12-24 17:07] LABS: Alanine Aminotransferase 17 U/L (0-31); Albumin Level 4.4 g/dL (3.5-5.0); Alkaline Phosphatase 81 U/L (39-117); Anion Gap 12 (12-20); Aspartate Amino Transferase 21 U/L (5-31); Blood Urea Nitrogen 9 mg/dL (9-16); Calcium 9.0 mg/dL (8.4-10.2); Carbon Dioxide 26 mmol/L (22-29); Chloride 107 mmol/L (96-108); Estimated Glomerular Filt Rate > 60; Potassium 3.8 mmol/L (3.3-5.1); Sodium 141 mmol/L (135-145); Total Protein 7.6 g/dL (6.5-8.0)
[2024-12-24 17:38] LABS: Hematocrit 40.7 % (37.0-47.0); Hemoglobin 13.2 g/dl (12.0-16.0); Imm Gran Abs Auto 0.03 X10*3/uL (0.00-0.03); Imm Gran Pct Auto 0.4 % (0.0-0.4); Lymphocytes Absolute Auto 1.7 X10*3/uL (1.2-4.9); Mean Corpuscular HGB Conc 32.4 g/dl (31.0-35.0); Mean Corpuscular Hemoglobin 27.6 pg (27.0-33.0); Mean Corpuscular Volume 85.1 fL (80.0-98.0); NRBC Abs Auto 0.000 X10*3/uL (0.0-0.012); NRBC Pct Auto 0.0 /100WBC (0.0-0.2); Platelet Count 415 X10*3/uL (160-400); Red Blood Count 4.78 X10*6/uL (4.20-5.50); White Blood Count 7.1 X10*3/uL (4.8-10.8)
== END 2024-12-24 14:04 | disposition home or self-care (01) ==
LOC: HO.HHCL 14:03
PROVIDERS: PCP Family Medicine; Visit Provider Family Medicine
DX: N92.0 Excessive and frequent menstruation with regular cycle (principal); N93.9 Abnormal uterine and vaginal bleeding, unspecified; E55.9 Vitamin D deficiency, unspecified; R58 Hemorrhage, not elsewhere classified; R03.0 Elevated blood-pressure reading, without diagnosis of hypertension; Z83.3 Family history of diabetes mellitus; Z13.1 Encounter for screening for diabetes mellitus
CPT/HCPCS: 36415; 80053; 82306; 83036; 84443; 85025; 85240; 85246

== ENCOUNTER 2025-03-07 11:05 | Outpatient (REF) | payer OTHER, SELFPAY ==
--- NOTE | ~2025-03-07 | US_ITS ---
CLINICAL HISTORY: AUB US pelvis transabdominal and transvaginal Comparison: None provided Findings: Transabdominal scanning performed for overall anatomy. Transvaginal scanning performed for additional detail. Anteverted uterus is 7.6 cm length. There is a 1.6 x 1.5 x 1.0 cm myometrial leiomyoma. Endometrium 2 mm thickness. Right ovary 3 x 1.6 x 2.3 cm. Left ovary 3.6 x 1.5 x 1.3 cm. Normal color Doppler of both ovaries. No free fluid. IMPRESSION: 1. Uterine myometrial leiomyoma This document has been electronically signed by: Navi Shore MD on 03/08/2025 08:57:45
== END 2025-03-07 11:06 | disposition home or self-care (01) ==
LOC: HO.US 11:05
PROVIDERS: PCP Family Medicine; Visit Provider Family Medicine
DX: N93.9 Abnormal uterine and vaginal bleeding, unspecified (principal)
CPT/HCPCS: 76830; 76856

== ENCOUNTER → 2025-03-07 11:09 | Outpatient (BNV) | payer OTHER, SELFPAY | PROVIDERS: PCP Family Medicine; Visit Provider Specialist | DX: N93.9 Abnormal uterine and vaginal bleeding, unspecified (principal) | CPT/HCPCS: 76830; 76856 ==